=== PATIENT | female | born 1995 | race Caucasian/White ===

== ENCOUNTER 2018-03-04 19:27 | Emergency (ER) | payer MEDICAID ==
[~2018-03-04] VITALS: Ht 152.4 cm; Wt 66.0 kg
[2018-03-04 21:03] VITALS: BP 103/68
== END 2018-03-04 22:45 | disposition left against medical advice (07) ==
LOC: ER 19:27
DX: R51 Headache (principal); R10.13 Epigastric pain; R11.0 Nausea; Z53.21 Procedure and treatment not carried out due to patient leaving prior to being seen by health care provider

== ENCOUNTER 2019-03-30 07:43 | Emergency (ER) | payer MEDICAID, OTHER ==
[~2019-03-30] VITALS: Ht 154.9 cm; Wt 66.0 kg
[2019-03-30 09:42] VITALS: BP 103/63
== END 2019-03-30 09:44 | disposition home or self-care (01) ==
LOC: ER 08:06
DX: R07.89 Other chest pain (principal); F12.10 Cannabis abuse, uncomplicated; F17.210 Nicotine dependence, cigarettes, uncomplicated
CPT/HCPCS: 71046; 81025; 93005; 99283; Z7610